=== PATIENT | female | born 1940 | race African-American/Black ===

== ENCOUNTER 2020-01-12 13:10 | Inpatient (IN) ==
[2020-01-12] MEDS ORDERED: SODIUM CHLORIDE 0.9% 1,000 ML IV STA (13:56)
[2020-01-12 15:03] LABS: Basophils % 0.4 % (0.0-0.8); Eosinophils # 0.1 10*3/uL (0.0-0.87); Eosinophils % 0.7 % (0.00-10.9); Hematocrit 36.1 VOL% (35.7-47.0); Hemoglobin 12.2 GM/DL (12.0-16.0); Immature Granulocytes % 0.6 %; Immature Granulocytes Absolute 0.04 #; Lymphocytes # 1.1 10*3/uL (1.4-4.0); Mean Corpuscular HGB Conc 33.8 GM/DL (32-36); Mean Corpuscular Volume 84.9 FL (87-102); Mean Platelet Volume 9.3 FL (9.6-12.0); Monocytes % 11.8 % (1.7-12.7); Neutrophils % 69.5 % (38.7-73.9); Platelet Count 167 T/CUMM (130-400); Red Blood Count 4.25 MC/CUMM (3.8-5.5); Red Cell Distribution Width 14.8 % (9.3-17.3); White Blood Count 6.7 T/CUMM (4-12)
[2020-01-12 15:23] LABS: INR 1.1; PT Patient Result 11.4 SECS (9.8-11.9); Partial Thromboplastin Time 24.8 SECS (23.9-33.8)
[2020-01-12 15:34] LABS: Albumin 3.1 G/DL (3.4-5.0); Bilirubin,Total 1.2 MG/DL (0.2-1.0); Calcium 9.3 MG/DL (8.5-10.1); Osmolality,Calculated 270.4 MOS/KG (273-304)
[2020-01-12] MEDS ORDERED: ENOXAPARIN 30 MG/0.3 ML SYRINGE IV STA (17:00)
[2020-01-12] MEDS ORDERED: ALBUTEROL/IPRATROPIUM 3 ML NEB RESP TX PRN (17:33)
[2020-01-12] MEDS ORDERED: ONDANSETRON 4 MG/2 ML VIAL IV PRN (17:33)
[2020-01-12] MEDS ORDERED: ALBUTEROL 2.5 MG/3 ML NEB RESP TX PRN (17:33)
[2020-01-12] MEDS ORDERED: ENOXAPARIN 30 MG/0.3 ML SYRINGE SUBCUT STA (17:52)
[2020-01-12 18:13] LABS: Bacteria,Urine Occasional /HPF (Few); Bilirubin,Urine Negative (Negative); Blood, Urine Negative (Negative); Glucose,Urine (UA) Negative (Negative); Ketones,Urine Negative (Negative); Mucus,Urine Occasional /LPF (Occasional); Nitrite,Urine Negative (Negative); Protein,Urine Negative; RBC,Urine 1 /HPF (0-4); Squamous Epithelial Cell,Urine Occasional /HPF (0-10); Urine Appearance CLEAR (Clear); Urine Color Yellow (Yellow); Urine Specific Gravity 1.015 (1.001-1.035); Urine Urobilinogen < 2.0 EU/DL (0.2-1.0); WBC,Urine 1 /HPF (0-6)
[2020-01-12] MEDS: SODIUM CHLORIDE 0.9% 1,000 ML IV SCH (18:44)
[2020-01-12] MEDS ORDERED: DIAZEPAM 5 MG TABLET PO ONE (19:20)
[2020-01-12] MEDS ORDERED: diphenhydrAMINE CAP 25 MG CAPSULE PO ONE (19:20)
[2020-01-12] MEDS: APIXABAN 5 MG TABLET PO SCH (19:41)
[2020-01-12] MEDS ORDERED: LIDOCAINE 1% 20 ML VIAL ONE (19:44)
[2020-01-12] MEDS ORDERED: MIDAZOLAM 2 MG/2 ML VIAL ONE (19:57)
[2020-01-12] MEDS ORDERED: fentaNYL 100 MCG/2 ML VIAL ONE (19:58)
[2020-01-12] MEDS ORDERED: HEPARIN DRIP 25,000 UNITS/500 ML PREMIX IV SCH ×2 (20:00)
[2020-01-12] MEDS ORDERED: ALTEPLASE 6 MG in SODIUM CHLORIDE 0.9% 120 ML IV SCH (20:00)
[2020-01-12] MEDS ORDERED: SODIUM CHLORIDE 0.9% 1,000 ML IV SCH ×2 (20:00)
[2020-01-12 21:53] LABS: INR 1.1; PT Patient Result 11.8 SECS (9.8-11.9); Partial Thromboplastin Time 39.6 SECS (23.9-33.8)
[2020-01-12] MEDS: METOPROLOL TARTRATE 25 MG TABLET PO SCH (22:56)
[2020-01-13 04:40] LABS: Basophils % 0.5 % (0.0-0.8); Eosinophils # 0.1 10*3/uL (0.0-0.87); Hematocrit 31.7 VOL% (35.7-47.0); Hemoglobin 10.6 GM/DL (12.0-16.0); Immature Granulocytes % 0.5 %; Immature Granulocytes Absolute 0.03 #; Lymphocytes # 1.5 10*3/uL (1.4-4.0); Lymphocytes % 24.1 % (21.3-54.2); Mean Corpuscular HGB Conc 33.4 GM/DL (32-36); Mean Corpuscular Volume 86.4 FL (87-102); Mean Platelet Volume 9.7 FL (9.6-12.0); Monocytes % 13.1 % (1.7-12.7); Neutrophils % 59.8 % (38.7-73.9); Platelet Count 156 T/CUMM (130-400); Red Blood Count 3.67 MC/CUMM (3.8-5.5); Red Cell Distribution Width 14.8 % (9.3-17.3); White Blood Count 6.1 T/CUMM (4-12)
[2020-01-13 04:45] LABS: INR 1.2; PT Patient Result 12.9 SECS (9.8-11.9)
[2020-01-13] MEDS: SODIUM CHLORIDE 0.9% 1,000 ML IV SCH ×3 (05:05→15:30)
[2020-01-13 05:08] LABS: Calcium 8.2 MG/DL (8.5-10.1); Osmolality,Calculated 277.7 MOS/KG (273-304)
[2020-01-13 05:13] LABS: Troponin I 0.374 NG/ML (0.00-0.045)
[2020-01-13] MEDS: APIXABAN 5 MG TABLET PO SCH ×2 (08:35→20:45)
[2020-01-13] MEDS: CHOLECALCIFEROL 1,000 UNIT TABLET PO SCH (08:35)
[2020-01-13] MEDS: allopurinoL 100 MG TABLET PO SCH (08:35)
[2020-01-13] MEDS: PANTOPRAZOLE 40 MG TABLET PO SCH (08:35)
[2020-01-13] MEDS: METOPROLOL TARTRATE 25 MG TABLET PO SCH ×2 (08:35→20:45)
[2020-01-13] MEDS ORDERED: PNEUMOCOCCAL VACCINE (13 VALENT) 0.5 ML SYRINGE IM ONE (09:00)
[2020-01-13 13:54] LABS: Partial Thromboplastin Time 108.7 SECS (23.9-33.8)
[2020-01-13 15:02] LABS: Basophils % 0.4 % (0.0-0.8); Eosinophils # 0.1 10*3/uL (0.0-0.87); Eosinophils % 2.3 % (0.00-10.9); Hematocrit 28.8 VOL% (35.7-47.0); Hemoglobin 9.5 GM/DL (12.0-16.0); Immature Granulocytes % 1.4 %; Immature Granulocytes Absolute 0.08 #; Lymphocytes # 0.9 10*3/uL (1.4-4.0); Lymphocytes % 16.7 % (21.3-54.2); Mean Corpuscular Volume 87.8 FL (87-102); Mean Platelet Volume 10.3 FL (9.6-12.0); Monocytes % 11.9 % (1.7-12.7); Neutrophils % 67.3 % (38.7-73.9); Platelet Count 155 T/CUMM (130-400); Red Blood Count 3.28 MC/CUMM (3.8-5.5); Red Cell Distribution Width 14.8 % (9.3-17.3); White Blood Count 5.6 T/CUMM (4-12)
[2020-01-13 21:08] LABS: Partial Thromboplastin Time 38.4 SECS (23.9-33.8)
[2020-01-14 05:47] LABS: Basophils % 0.4 % (0.0-0.8); Eosinophils # 0.1 10*3/uL (0.0-0.87); Eosinophils % 1.9 % (0.00-10.9); Hematocrit 26.6 VOL% (35.7-47.0); Hemoglobin 8.9 GM/DL (12.0-16.0); Immature Granulocytes % 0.9 %; Immature Granulocytes Absolute 0.05 #; Lymphocytes % 18.6 % (21.3-54.2); Mean Corpuscular HGB Conc 33.5 GM/DL (32-36); Mean Corpuscular Volume 87.2 FL (87-102); Mean Platelet Volume 10.3 FL (9.6-12.0); Monocytes % 11.3 % (1.7-12.7); Neutrophils % 66.9 % (38.7-73.9); Platelet Count 167 T/CUMM (130-400); Red Blood Count 3.05 MC/CUMM (3.8-5.5); Red Cell Distribution Width 14.5 % (9.3-17.3); White Blood Count 5.3 T/CUMM (4-12)
[2020-01-14 05:57] LABS: Osmolality,Calculated 275.5 MOS/KG (273-304)
[2020-01-14] MEDS: SODIUM CHLORIDE 0.9% 1,000 ML IV SCH (06:04)
[2020-01-14] MEDS: CHOLECALCIFEROL 1,000 UNIT TABLET PO SCH (09:07)
[2020-01-14] MEDS: APIXABAN 5 MG TABLET PO SCH ×2 (09:08→20:12)
[2020-01-14] MEDS: allopurinoL 100 MG TABLET PO SCH (09:08)
[2020-01-14] MEDS: METOPROLOL TARTRATE 25 MG TABLET PO SCH ×2 (09:08→20:12)
[2020-01-14] MEDS: PANTOPRAZOLE 40 MG TABLET PO SCH (09:09)
[2020-01-14 09:23] LABS: Partial Thromboplastin Time 37.1 SECS (23.9-33.8)
[2020-01-14] MEDS ORDERED: ACETAMINOPHEN 325 MG TABLET PO PRN (18:12)
[2020-01-15] MEDS: SODIUM CHLORIDE 0.9% 1,000 ML IV SCH (01:52)
[2020-01-15 05:12] LABS: Basophils % 0.4 % (0.0-0.8); Eosinophils # 0.1 10*3/uL (0.0-0.87); Eosinophils % 1.8 % (0.00-10.9); Hematocrit 25.2 VOL% (35.7-47.0); Hemoglobin 8.4 GM/DL (12.0-16.0); Immature Granulocytes % 1.1 %; Immature Granulocytes Absolute 0.05 #; Lymphocytes # 0.9 10*3/uL (1.4-4.0); Lymphocytes % 19.2 % (21.3-54.2); Mean Corpuscular HGB Conc 33.3 GM/DL (32-36); Mean Corpuscular Volume 87.5 FL (87-102); Mean Platelet Volume 9.7 FL (9.6-12.0); Neutrophils % 64.5 % (38.7-73.9); Platelet Count 167 T/CUMM (130-400); Red Blood Count 2.88 MC/CUMM (3.8-5.5); Red Cell Distribution Width 14.2 % (9.3-17.3); White Blood Count 4.5 T/CUMM (4-12)
[2020-01-15 05:27] LABS: Calcium 8.4 MG/DL (8.5-10.1); Osmolality,Calculated 279.1 MOS/KG (273-304)
[2020-01-15] MEDS ORDERED: POTASSIUM CHLORIDE 20 MEQ TABLET PO PRN (07:12)
[2020-01-15] MEDS ORDERED: SODIUM CHLORIDE 0.9% 1,000 ML IV PRN (07:45)
[2020-01-15] MEDS: CHOLECALCIFEROL 1,000 UNIT TABLET PO SCH (09:07)
[2020-01-15] MEDS: PANTOPRAZOLE 40 MG TABLET PO SCH (09:07)
[2020-01-15] MEDS: APIXABAN 5 MG TABLET PO SCH ×2 (09:07→21:36)
[2020-01-15] MEDS: METOPROLOL TARTRATE 25 MG TABLET PO SCH ×2 (09:07→21:36)
[2020-01-15] MEDS: allopurinoL 100 MG TABLET PO SCH (09:12)
[2020-01-15 09:44] LABS: Partial Thromboplastin Time 31.3 SECS (23.9-33.8)
[2020-01-15 15:42] LABS: Hematocrit 27.3 VOL% (35.7-47.0); Hemoglobin 9.1 GM/DL (12.0-16.0)
[2020-01-15 21:10] LABS: Partial Thromboplastin Time 32.4 SECS (23.9-33.8)
[2020-01-16 05:13] LABS: Basophils % 0.4 % (0.0-0.8); Eosinophils # 0.1 10*3/uL (0.0-0.87); Eosinophils % 1.4 % (0.00-10.9); Hematocrit 30.5 VOL% (35.7-47.0); Hemoglobin 10.3 GM/DL (12.0-16.0); Immature Granulocytes % 1.3 %; Lymphocytes # 2.1 10*3/uL (1.4-4.0); Lymphocytes % 26.9 % (21.3-54.2); Mean Corpuscular HGB Conc 33.8 GM/DL (32-36); Mean Corpuscular Volume 87.9 FL (87-102); Mean Platelet Volume 9.3 FL (9.6-12.0); Monocytes % 10.8 % (1.7-12.7); Neutrophils % 59.2 % (38.7-73.9); Platelet Count 234 T/CUMM (130-400); Red Blood Count 3.47 MC/CUMM (3.8-5.5); Red Cell Distribution Width 14.1 % (9.3-17.3); White Blood Count 7.9 T/CUMM (4-12)
[2020-01-16 05:29] LABS: Calcium 8.8 MG/DL (8.5-10.1); Osmolality,Calculated 271.8 MOS/KG (273-304)
[2020-01-16] MEDS ORDERED: MAGNESIUM SULF RIDER 2 GM in PREMIX 1 EACH IV ONE (07:41)
[2020-01-16] MEDS ORDERED: POTASSIUM CHLORIDE 20 MEQ TABLET PO ONE (07:43)
[2020-01-16] MEDS: PANTOPRAZOLE 40 MG TABLET PO SCH (08:47)
[2020-01-16] MEDS: allopurinoL 100 MG TABLET PO SCH (08:47)
[2020-01-16] MEDS: APIXABAN 5 MG TABLET PO SCH ×2 (08:47→20:43)
[2020-01-16] MEDS: CHOLECALCIFEROL 1,000 UNIT TABLET PO SCH (08:47)
[2020-01-16] MEDS: METOPROLOL TARTRATE 25 MG TABLET PO SCH ×2 (08:48→20:43)
[2020-01-16] MEDS ORDERED: FUROSEMIDE 40 MG/4 ML VIAL IV ONE (09:41)
[2020-01-17 05:46] LABS: Basophils % 0.7 % (0.0-0.8); Eosinophils # 0.1 10*3/uL (0.0-0.87); Hematocrit 29.4 VOL% (35.7-47.0); Immature Granulocytes % 2.1 %; Immature Granulocytes Absolute 0.13 #; Lymphocytes # 1.4 10*3/uL (1.4-4.0); Mean Platelet Volume 9.6 FL (9.6-12.0); Monocytes % 12.2 % (1.7-12.7); NRBC # 0.03 10*3/uL; Platelet Count 265 T/CUMM (130-400); Red Blood Count 3.38 MC/CUMM (3.8-5.5); Red Cell Distribution Width 14.1 % (9.3-17.3); White Blood Count 6.1 T/CUMM (4-12)
[2020-01-17 06:08] LABS: Calcium 8.9 MG/DL (8.5-10.1); Osmolality,Calculated 277.4 MOS/KG (273-304)
[2020-01-17] MEDS: POTASSIUM CHLORIDE 20 MEQ TABLET PO SCH (09:09)
[2020-01-17] MEDS: allopurinoL 100 MG TABLET PO SCH (09:09)
[2020-01-17] MEDS: METOPROLOL TARTRATE 25 MG TABLET PO SCH ×2 (09:09→20:11)
[2020-01-17] MEDS: PANTOPRAZOLE 40 MG TABLET PO SCH (09:09)
[2020-01-17] MEDS: CHOLECALCIFEROL 1,000 UNIT TABLET PO SCH (09:09)
[2020-01-17] MEDS: APIXABAN 5 MG TABLET PO SCH ×2 (09:09→20:10)
[2020-01-17] MEDS: FUROSEMIDE 20 MG TABLET PO SCH (09:09)
[2020-01-18] MEDS: CHOLECALCIFEROL 1,000 UNIT TABLET PO SCH (08:42)
[2020-01-18] MEDS: allopurinoL 100 MG TABLET PO SCH (08:45)
[2020-01-18] MEDS: APIXABAN 5 MG TABLET PO SCH ×2 (08:45→21:55)
[2020-01-18] MEDS: METOPROLOL TARTRATE 25 MG TABLET PO SCH ×2 (08:45→21:55)
[2020-01-18] MEDS: PANTOPRAZOLE 40 MG TABLET PO SCH (08:45)
[2020-01-18] MEDS: POTASSIUM CHLORIDE 20 MEQ TABLET PO SCH (08:45)
[2020-01-18] MEDS: FUROSEMIDE 20 MG TABLET PO SCH (08:45)
[2020-01-18] MEDS ORDERED: MAGNESIUM HYDROXIDE SUSP 30 ML UDCUP PO PRN (12:40)
[2020-01-19] MEDS: POTASSIUM CHLORIDE 20 MEQ TABLET PO SCH (09:10)
[2020-01-19] MEDS: PANTOPRAZOLE 40 MG TABLET PO SCH (09:10)
[2020-01-19] MEDS: CHOLECALCIFEROL 1,000 UNIT TABLET PO SCH (09:10)
[2020-01-19] MEDS: METOPROLOL TARTRATE 25 MG TABLET PO SCH ×2 (09:10→20:07)
[2020-01-19] MEDS: FUROSEMIDE 20 MG TABLET PO SCH (09:10)
[2020-01-19] MEDS: APIXABAN 5 MG TABLET PO SCH ×2 (09:10→20:07)
[2020-01-19] MEDS: allopurinoL 100 MG TABLET PO SCH (09:10)
[2020-01-20 05:31] LABS: Basophils % 0.7 % (0.0-0.8); Eosinophils # 0.1 10*3/uL (0.0-0.87); Eosinophils % 1.9 % (0.00-10.9); Hematocrit 28.8 VOL% (35.7-47.0); Hemoglobin 9.4 GM/DL (12.0-16.0); Immature Granulocytes % 3.2 %; Immature Granulocytes Absolute 0.19 #; Lymphocytes # 1.5 10*3/uL (1.4-4.0); Lymphocytes % 25.7 % (21.3-54.2); Mean Corpuscular HGB Conc 32.6 GM/DL (32-36); Mean Platelet Volume 9.3 FL (9.6-12.0); Monocytes % 12.8 % (1.7-12.7); NRBC # 0.02 10*3/uL; Neutrophils % 55.7 % (38.7-73.9); Platelet Count 298 T/CUMM (130-400); Red Cell Distribution Width 14.6 % (9.3-17.3); White Blood Count 5.9 T/CUMM (4-12)
[2020-01-20 06:05] LABS: Calcium 9.5 MG/DL (8.5-10.1); Osmolality,Calculated 278.4 MOS/KG (273-304)
[2020-01-20] MEDS ORDERED: APIXABAN 5 MG TABLET PO SCH (09:00)
[2020-01-20] MEDS: POTASSIUM CHLORIDE 20 MEQ TABLET PO SCH (10:13)
[2020-01-20] MEDS: FUROSEMIDE 20 MG TABLET PO SCH (10:14)
[2020-01-20] MEDS: METOPROLOL TARTRATE 25 MG TABLET PO SCH (10:14)
[2020-01-20] MEDS: PANTOPRAZOLE 40 MG TABLET PO SCH (10:14)
[2020-01-20] MEDS: allopurinoL 100 MG TABLET PO SCH (10:14)
[2020-01-20] MEDS: CHOLECALCIFEROL 1,000 UNIT TABLET PO SCH (10:16)
[2020-01-20] MEDS ORDERED: HEPARIN LOCK FLUSH 500 UNIT/5 ML SYRINGE IV ONE (12:42)
[2020-01-20 13:15] VITALS: BP 119/64
== END 2020-01-20 15:00 | disposition swing bed (61) | DRG 176 ==
LOC: N.ED 13:10 → N.EDINP 16:56 → SUATTDRO 16:56 → N.ICU 17:39 → N.TELEN 01-13 17:38
PROVIDERS: ADMIT Internal Medicine; ATTEND Hospitalist

== ENCOUNTER 2021-06-02 05:56 | Observation (INO) ==
[2021-05-28 12:24] LABS: Bilirubin,Urine Negative (Negative); Blood, Urine Negative (Negative); Glucose,Urine (UA) Negative (Negative); Ketones,Urine Negative (Negative); Nitrite,Urine Negative (Negative); Protein,Urine Negative; Urine Appearance Clear (Clear); Urine Color Light Yellow (Yellow); Urine Urobilinogen 0.2 EU/DL (<2.0); Urine pH 6.5 (4.5-8.0)
[2021-05-28 12:27] LABS: Basophils # 0.1 10*3/uL (0.0-0.2); Basophils % 0.7 % (0.0-0.8); Eosinophils # 0.2 10*3/uL (0.0-0.87); Eosinophils % 3.4 % (0.00-10.9); Hemoglobin 13.6 GM/DL (12.0-16.0); Immature Granulocytes % 0.1 %; Immature Granulocytes Absolute 0.01 #; Lymphocytes # 2.1 10*3/uL (1.4-4.0); Lymphocytes % 31.6 % (21.3-54.2); Mean Corpuscular HGB Conc 32.4 GM/DL (32-36); Mean Corpuscular Volume 90.5 FL (87-102); Mean Platelet Volume 9.6 FL (9.6-12.0); Monocytes % 9.1 % (1.7-12.7); Neutrophils % 55.1 % (38.7-73.9); Platelet Count 224 T/CUMM (130-400); Red Blood Count 4.64 MC/CUMM (3.8-5.5); Red Cell Distribution Width 14.3 % (9.3-17.3); White Blood Count 6.8 T/CUMM (4-12)
[2021-05-28 12:39] LABS: PT Patient Result 11.2 SECS (10.5-12.0); Partial Thromboplastin Time 27.6 SECS (23.8-32.1)
[2021-05-28 12:42] LABS: Albumin 3.5 G/DL (3.4-5.0); Bilirubin,Total 0.8 MG/DL (0.20-1.00); Calcium 9.5 MG/DL (8.5-10.1); Osmolality,Calculated 277.5 MOS/KG (273-304); Potassium 3.8 MMOL/L (3.5-5.1); Total Protein 7.2 G/DL (6.4-8.2)
[2021-06-02] MEDS ORDERED: FAMOTIDINE 20 MG TABLET PO ONE (06:29)
[2021-06-02] MEDS ORDERED: GABAPENTIN 400 MG CAPSULE PO ONE (06:29)
[2021-06-02] MEDS ORDERED: ACETAMINOPHEN 500 MG TABLET PO ONE (06:29)
[2021-06-02] MEDS ORDERED: LACTATED RINGERS 1,000 ML IV SCH (06:30)
[2021-06-02] MEDS ORDERED: VANCOMYCIN INJ 1,000 MG in SODIUM CHLORIDE 0.9% 250 ML IV ONE (06:30)
[2021-06-02] MEDS ORDERED: ACETAMINOPHEN 500 MG TABLET ONE (06:30)
[2021-06-02] MEDS ORDERED: KETAMINE 500 MG/10 ML VIAL ONE (06:37)
[2021-06-02] MEDS ORDERED: MIDAZOLAM 2 MG/2 ML VIAL ONE ×2 (06:37→06:38)
[2021-06-02] MEDS ORDERED: fentaNYL 100 MCG/2 ML VIAL ONE (06:37)
[2021-06-02] MEDS ORDERED: LIDOCAINE 2% 5 ML VIAL ONE (06:39)
[2021-06-02] MEDS ORDERED: propofoL 200 MG/20 ML VIAL IV ONE (06:39)
[2021-06-02] MEDS ORDERED: BACITRACIN OINT 0.9 GM PACK TOP ONE (06:40)
[2021-06-02] MEDS ORDERED: ROPIVACAINE 0.5% 30 ML VIAL ONE (06:44)
[2021-06-02] MEDS ORDERED: DEXAMETHASONE 4 MG/1 ML VIAL ONE (06:44)
[2021-06-02] MEDS ORDERED: BUPIVACAINE SPINAL 0.75% 2 ML AMP SPINAL ONE (06:44)
[2021-06-02] MEDS ORDERED: TRANEXAMIC ACID 1,000 MG/10 ML VIAL ONE (07:47)
[2021-06-02] MEDS ORDERED: LACTATED RINGERS 1,000 ML IV ONE (08:47)
[2021-06-02] MEDS ORDERED: SODIUM CHLORIDE 0.9% 100 ML IV ONE (08:47)
[2021-06-02] MEDS ORDERED: ONDANSETRON 4 MG/2 ML VIAL ONE (08:47)
[2021-06-02] MEDS ORDERED: MAGNESIUM HYDROXIDE SUSP 30 ML UDCUP PO PRN (08:52)
[2021-06-02] MEDS ORDERED: MORPHINE 2 MG/1 ML SYRINGE IV PRN ×2 (08:53)
[2021-06-02] MEDS ORDERED: diphenhydrAMINE CAP 25 MG CAPSULE PO PRN (08:53)
[2021-06-02] MEDS ORDERED: ZALEPLON 5 MG CAPSULE PO PRN (08:53)
[2021-06-02] MEDS ORDERED: ONDANSETRON 4 MG/2 ML VIAL IV PRN ×2 (08:53→09:13)
[2021-06-02] MEDS ORDERED: HYDROmorphone 2 MG/1 ML VIAL IV PRN (09:13)
[2021-06-02] MEDS ORDERED: KETOROLAC 30 MG/1 ML VIAL ONE (09:40)
[2021-06-02] MEDS: KETOROLAC 15 MG/1 ML VIAL IV SCH ×3 (09:41→20:34)
[2021-06-02] MEDS: DOCUSATE SODIUM 100 MG CAPSULE PO SCH ×2 (12:05→20:34)
[2021-06-02] MEDS: LACTATED RINGERS 1,000 ML IV SCH ×2 (13:42→16:57)
[2021-06-02] MEDS: ceFAZolin 2,000 MG/50 ML DUPLEX IV SCH ×2 (13:43→20:34)
[2021-06-02] MEDS ORDERED: hydrALAZINE 20 MG/1 ML VIAL IV PRN (15:23)
[2021-06-02] MEDS: APIXABAN 2.5 MG TABLET PO SCH (20:34)
[2021-06-02] MEDS: METOPROLOL TARTRATE 25 MG TABLET PO SCH (20:34)
[2021-06-03] MEDS: KETOROLAC 15 MG/1 ML VIAL IV SCH (02:35)
[2021-06-03] MEDS: LACTATED RINGERS 1,000 ML IV SCH (02:41)
[2021-06-03 05:32] LABS: Basophils % 0.1 % (0.0-0.8); Hematocrit 34.3 VOL% (35.7-47.0); Hemoglobin 10.8 GM/DL (12.0-16.0); Immature Granulocytes % 0.5 %; Immature Granulocytes Absolute 0.05 #; Lymphocytes # 1.2 10*3/uL (1.4-4.0); Lymphocytes % 12.5 % (21.3-54.2); Mean Corpuscular HGB Conc 31.5 GM/DL (32-36); Mean Corpuscular Volume 93.5 FL (87-102); Mean Platelet Volume 9.8 FL (9.6-12.0); Monocytes % 8.9 % (1.7-12.7); Platelet Count 196 T/CUMM (130-400); Red Blood Count 3.67 MC/CUMM (3.8-5.5); Red Cell Distribution Width 14.2 % (9.3-17.3); White Blood Count 9.5 T/CUMM (4-12)
[2021-06-03 05:48] LABS: Calcium 8.4 MG/DL (8.5-10.1); Osmolality,Calculated 279.5 MOS/KG (273-304); Potassium 3.7 MMOL/L (3.5-5.1)
[2021-06-03] MEDS ORDERED: MORPHINE 4 MG/1 ML VIAL IV PRN ×2 (06:00)
[2021-06-03] MEDS: METOPROLOL TARTRATE 25 MG TABLET PO SCH (08:14)
[2021-06-03] MEDS: DOCUSATE SODIUM 100 MG CAPSULE PO SCH (08:14)
[2021-06-03] MEDS: APIXABAN 2.5 MG TABLET PO SCH (08:15)
[2021-06-03] MEDS ORDERED: PANTOPRAZOLE 40 MG TABLET PO SCH (09:00)
[2021-06-03] MEDS ORDERED: ATORVASTATIN 20 MG TABLET PO SCH (09:00)
[2021-06-03] MEDS ORDERED: ASPIRIN CHEW 81 MG TABLET PO SCH (09:00)
[2021-06-03] MEDS ORDERED: Umeclidinium-Vilanterol [Anoro Ellipta] 62.5-25 mcg/actuation INH SCH (11:30)
[2021-06-03 11:45] VITALS: BP 138/59
== END 2021-06-03 15:51 | disposition home health service (06) ==
LOC: N.OR 05:56 → N.SDSINP 05:56 → N.3E 09:48
PROVIDERS: ADMIT Orthopaedic Surgery; ATTEND Orthopaedic Surgery